=== PATIENT | male | born 1955 | race African-American/Black ===

== ENCOUNTER 2019-06-07 10:47 | Emergency (ER) | payer BC ==
[2019-06-07 10:57] VITALS: BP 146/85
[2019-06-07] MEDS ORDERED: IBUPROFEN 800 MG TABLET PO ONE (11:38)
--- NOTE | 2019-06-07 11:43 | ER Document Report ---
HPI - HPI Patient complains to provider of: right arm pain Time Seen by Provider: 06/07/19 11:31 Onset: Yesterday Onset/Duration: Sudden Quality of pain: Achy Severity: Severe Pain Level: 4 Context: This 64-year-old male with history of asthma on high blood pressure presents emergency department with right arm pain. Reports he parked got all the car was walking from handicap spot, misstepped and fell onto his knees and onto his outstretched right arm. Complains of pain with movement to the wrist into the elbow. Patient is right-hand dominant. Patient denies hitting his head. No change in LOC. Patient is not on anticoagulants. No other complaints such as fever vomiting diarrhea. He has not taken anything for pain. Associated Symptoms: None Exacerbated by: Movement Relieved by: Denies Similar symptoms previously: No Recently seen / treated by doctor: No - MUSCULOSKELETAL Musculoskeletal: REPORTS: Extremity pain - R UE Past Medical History - General Information source: Patient - Social History Smoking Status: Never Smoker Chew tobacco use (# tins/day): No Frequency of alcohol use: None Drug Abuse: None Family History: None Patient has suicidal ideation: No Patient has homicidal ideation: No - Past Medical History Cardiac Medical History: Reports: Hx Hypertension Pulmonary Medical History: Reports: Hx Asthma Surgical Hx: Negative Vertical Provider Document - CONSTITUTIONAL Agree With Documented VS: Yes Exam Limitations: No Limitations General Appearance: WD/WN, No Apparent Distress - winces with movement of right forearm - INFECTION CONTROL TRAVEL OUTSIDE OF THE [place] IN LAST 30 DAYS: No - HEENT HEENT: Atraumatic, Normocephalic - NECK Neck: Supple - RESPIRATORY Respiratory: No Respiratory Distress - CARDIOVASCULAR Cardiovascular: Regular Rate - MUSCULOSKELETAL/EXTREMETIES Musculoskeletal/Extremeties: MAEW, FROM, Tender - right elbow, right wrist, good radial pulse, cap refill< 3sec, wiggles fingers without problem, denies shoulder pain - NEURO Level of Consciousness: Awake, Alert, Appropriate Motor/Sensory: No Motor Deficit - DERM Integumentary: Warm, Dry Course - Re-evaluation Re-evalutation: 06/07/19 11:41 This 64-year-old male presents with right arm pain after he fell last night when he misstepped. Denies feeling faint or syncope. Reports he caught his right foot when he was walking tripped and landed on his knees and his outstretched right arm. 06/07/19 12:26 Elbow X-Ray 06/07/19 11:38 IMPRESSION: Elbow joint effusion. Subtle radiographic findings raise a question of a proximal radial metaphysis fracture, nondisplaced nonangulated Wrist X-Ray 06/07/19 11:38 IMPRESSION: NEGATIVE STUDY OF THE RIGHT WRIST. NO RADIOGRAPHIC EVIDENCE OF ACUTE INJURY. 06/07/19 12:47 Patient instructed on proximal radial fracture. Patient instructed on Percocet for acute pain. Instructed on splint need to follow-up with orthopedics. He was given a copy of the CD disc of his x-rays to take with him back to [place]. He verbalized understanding to all instructions. Dictation of this chart was performed using voice recognition software; therefore, there may be some unintended grammatical errors. - Vital Signs Vital signs: Temp Pulse Resp BP Pulse Ox 99 F 78 18 146/85 H 97 06/07/19 10:56 06/07/19 10:56 06/07/19 10:56 06/07/19 10:56 06/07/19 10:56 - Diagnostic Test Radiology reviewed: Image reviewed, Reports reviewed Procedures - Immobilization Right Elbow Pre-Proc Neuro Vasc Exam: Normal Immobilizer type: Long arm posterior, Sling Performed by: PCT - mahnaz pct Post-Proc Neuro Vasc Exam: Unchanged from pre-exam Alignment checked and good: Yes Discharge - Discharge Clinical Impression: Right arm pain Fracture of radial head, right, closed Qualifiers: Encounter type: initial encounter Fracture alignment: nondisplaced Qualified Code(s): S52.124A - Nondisplaced fracture of head of right radius, initial encounter for closed fracture Condition: Stable Disposition: HOME, SELF-CARE Instructions: Ice & Elevation ([facility]), Oral Narcotic Medication ([facility]), Radial Head Fracture ([facility]), Splint Pending Casting ([facility]) Additional Instructions: *You have been evaluated for right arm pain, radial head fracture *Maintain the splint and sling *Rest/Ice/Elevate *Follow up with orthopedics Sunday *Take medication as prescribed (take ibuprofen as indicated for mild pain take the Percocet for acute pain) *Return to ED for worsening condition, changes, needs Monitor your blood pressure. Your blood pressure was elevated today. This may be because you were anxious, in pain or because you need medication. It is important to follow up with your primary care provider for full evaluation. Prescriptions: Oxycodone HCl/Acetaminophen [Percocet 5-325 mg Tablet] 1 tab PO ASDIR PRN #15 tablet PRN Reason: Forms: Elevated Blood Pressure
--- NOTE | 2019-06-07 12:21 | RADIOLOGY REPORT (SQ) ---
EXAM DESCRIPTION: ELBOW RIGHT OVER 2 VIEWS COMPLETED DATE/TIME: 06/07/2019 11:50 am REASON FOR STUDY: fall, pain COMPARISON: None. NUMBER OF VIEWS: Four views. TECHNIQUE: AP, lateral, and both oblique radiographic images acquired of the right elbow. LIMITATIONS: None. FINDINGS: An elbow joint effusion is suspected from the lateral view. On the AP and external oblique images, a questionable nondisplaced fracture through the proximal radi al metaphysis is present, with buckling or subtle overlapping of trabecular pattern. Findings are wo rrisome for a nondisplaced radial head fracture. Distal humerus, proximal ulna are intact. No radiopaque foreign body or soft tissue gas. IMPRESSION: Elbow joint effusion. Subtle radiographic findings raise a question of a proximal radia l metaphysis fracture, nondisplaced nonangulated TECHNICAL DOCUMENTATION: JOB ID: [id number] [employer]- All Rights Reserved Reading location - IP/workstation name: [email or web address]
--- NOTE | 2019-06-07 12:22 | RADIOLOGY REPORT (SQ) ---
EXAM DESCRIPTION: WRIST RIGHT 3 VIEWS COMPLETED DATE/TIME: 06/07/2019 11:50 am REASON FOR STUDY: fall, pain COMPARISON: None. NUMBER OF VIEWS: Three views. TECHNIQUE: AP, lateral, and oblique radiographic images acquired of the right wrist. LIMITATIONS: None. FINDINGS: MINERALIZATION: Normal. BONES: No acute fracture or dislocation. No worrisome bone lesions. Normal alignment. SOFT TISSUES: No soft tissue swelling. No foreign body. OTHER: No other significant finding. IMPRESSION: NEGATIVE STUDY OF THE RIGHT WRIST. NO RADIOGRAPHIC EVIDENCE OF ACUTE INJURY. TECHNICAL DOCUMENTATION: JOB ID: [id number] [employer]- All Rights Reserved Reading location - IP/workstation name: [email or web address]
== END 2019-06-07 13:04 | disposition home or self-care (01) ==
LOC: ER 10:47
PROC: 2W38X1Z Immobilization of Right Upper Extremity using Splint (ICD-10-PCS; principal; 2019-06-07)
DX: S52.124A Nondisplaced fracture of head of right radius, initial encounter for closed fracture (principal); M79.601 Pain in right arm; M25.522 Pain in left elbow; M25.532 Pain in left wrist; W19.XXXA Unspecified fall, initial encounter
CPT/HCPCS: 99283